=== PATIENT | male | born 1995 | race Two or more races ===

== ENCOUNTER 2016-09-30 15:18 | Emergency (ER) | payer SELFPAY ==
[~2016-09-30] VITALS: Ht 170.2 cm; Wt 72.6 kg
[2016-09-30 15:29] VITALS: BP 132/76
[2016-09-30] MEDS ORDERED: KETOROLAC TROMETH 60MG/2ML VIAL IM ONE (17:00)
== END 2016-09-30 17:36 | disposition home or self-care (01) ==
LOC: ER 15:27
DX: S02.2XXA Fracture of nasal bones, initial encounter for closed fracture (principal); S09.93XA Unspecified injury of face, initial encounter; S01.83XA Puncture wound without foreign body of other part of head, initial encounter; Y08.89XA Assault by other specified means, initial encounter; Y93.89 Activity, other specified; Y99.8 Other external cause status; Y92.89 Other specified places as the place of occurrence of the external cause
CPT/HCPCS: 70160; 96372; 99284; J1885